=== PATIENT | female | born 2000 | race Two or more races ===

== ENCOUNTER → 2018-01-11 | Outpatient (CLI) | payer OTHER ==
[2018-01-11 16:27] LABS: HCG, SERUM QUANTITATIVE 11 MIU/ML
== END ==
LOC: M LAB 12:28
DX: O20.9 Hemorrhage in early pregnancy, unspecified (principal)
CPT/HCPCS: 84702

== ENCOUNTER 2018-12-21 20:25 | Outpatient (CLI) | payer OTHER ==
[~2018-12-21] VITALS: Ht 172.7 cm; Wt 90.2 kg
[2018-12-21 20:36] VITALS: BP 131/96
[2018-12-21 20:52] VITALS: BP 126/93
--- NOTE | 2018-12-21 21:11 | IPNPDOC ---
Text Note Date of Service The patient was seen on 12/21/18. NOTE 18 yo at 39+6 weeks today presented to L&D with the complaint of contractions that have been worsening throughout the day. She denies any vaginal bleeding or leakage of fluid. However she does have some brown discharge. She endorses excellent movement. She was checked in the office 1 week ago and was 1cm dilated. She denies any headaches, RUQ pain, visual changes, or SOB. Vitals - Diastolic pressure 93, systolic normal. Afebrile, non tachycardic General - AAXO3, sitting up in bed, NAD, pleasant and conversant Abdomen - Gravid uterus, no fundal tenderness Cervix - 1/50/-3, very posterior per RN exam Extremities - No edema FHR tracing - Reactive NST, with moderate variability, +accels, no decels. No ctx on toco. Patient not in active labor. Reassuring status. Note made of mildly elevated diastolic pressure of 93, however she has no headaches, RUQ pain, or visual changes. She has a follow up appointment scheduled for tomorrow at 0845. Return to care sooner for any urgent concerns. All patient questions answered. Edwardo Conde DO VS,Tom, I+O VS, Tom, I+O Vital Signs Date Time Temp Pulse Resp B/P (MAP) Pulse Ox O2 Delivery O2 Flow Rate FiO2 12/21/18 20:52 98.5 64 18 126/93 (104) EDWARDO CONDE DO Dec 21, 2018 21:11
== END 2018-12-21 21:10 | disposition home or self-care (01) ==
LOC: M LDO 20:25
PROVIDERS: ATTEND Obstetrics & Gynecology
DX: O47.1 False labor at or after 37 completed weeks of gestation (principal); O26.893 Other specified pregnancy related conditions, third trimester; R03.0 Elevated blood-pressure reading, without diagnosis of hypertension; Z3A.39 39 weeks gestation of pregnancy
CPT/HCPCS: 59025; G0378; G0463

== ENCOUNTER 2018-12-22 06:11 | Inpatient (IN) | payer OTHER ==
[~2018-12-22] VITALS: Ht 172.7 cm; Wt 89.5 kg
[2018-12-22] VITALS (51 sets, daily range): BP systolic 95–144; BP diastolic 53–94
[2018-12-22] MEDS ORDERED: PENICILLIN G POTASSIUM IV 5 MU in D5W MINI-BAG PLUS 100 ML IV STA ×2 (07:47→08:32)
[2018-12-22] MEDS ORDERED: LACTATED RINGER'S 1000 ML IV STA (07:47)
[2018-12-22] MEDS ORDERED: AMPICILLIN SOD 2 GM in APPROPRIATE DILUENT 20 ML IV STA (08:32)
[2018-12-22 08:35] LABS: HEMATOCRIT 37.9 % (36.0-47.0); HEMOGLOBIN 12.7 g/dl (12.0-15.5); MEAN CORPUSCULAR HEMOGLOBIN 30.4 pg (27.0-33.0); MEAN CORPUSCULAR HGB CONC 33.5 g/dl (32.0-36.5); MEAN CORPUSCULAR VOLUME 90.7 fl (80.0-96.0); PLATELET COUNT, AUTOMATED 273 10^3/uL (150-450); RED BLOOD COUNT 4.18 10^6/uL (4.00-5.40)
--- NOTE | 2018-12-22 08:47 | HPEPDOC ---
Obstetrical History & Physical General Date of Admission Dec 22, 2018 at 07:48 History of Present Illness María is a 18yo with SIUP at 40w0d by lmp c/w early u/s presenting wit h increasingly painful ctx every 1 to 4 minutes. She was here last night and discharged with no e/o labor, returned early this morning stating ctx more painful/regular. No LOF, no vaginal bleeding. Good movement. Chief Complaint: Contractions, term Information Provided By: Patient Care Care: Good Care Dating Final EDC: Dec 22, 2018 Final EDC by: LMP, 1st trimester (US) Antepartum Course Diagnos(e)s PNC complicated by GBS positive, varicella non-immune and excessive weight gain (46lb) Height (inches): 58 Pre- weight (lbs.): 153 Admission Weight (lbs.): 199 Change in Weight (lbs.): 46 Past Medical History Past Obstetrical History : Past Obstetrical History: Primgravida (1 early sab ) [employer] History: Spontaneous , History of STD (chlamydia 2017) Past Medical History Medical History Benign Surgical History: Denies/None Family History Significant Family History: No pertinent family hx Social History Marital Status: Family situation: Spouse/partner home Psychosocial History: No pertinent psych hx * Smoker: non-smoker Alcohol: Denies Drugs: denies Imunizations Tdap status: current Influenza Status: current Allergies Coded Allergies: No Known Allergies (Unverified , 01/08/18) Medications No Active Prescriptions or Reported Meds Physical Examination Physical Examination GENERAL: Alert and oriented times three. ABDOMEN: Gravid and non-tender to touch. FETUS: Is vertex (VTX) by sterile vaginal examination (SVE) EXTREMITIES: No edema Vital Signs/I&O Vital Signs Date Time Temp Pulse Resp B/P (MAP) Pulse Ox O2 Delivery O2 Flow Rate FiO2 12/22/18 06:53 98.8 100 100 99 12/22/18 06:51 130/86 12/22/18 06:47 Room Air Laboratory Data CBC/BMP 26 October H/H 11.9/35.5, plt 279 Urine Culture: No Growth Pertinent Laboratoy Data Blood Type: O+ RBC Antibody Screen: Negative HIV: Negative Hepatitis B: Negative Hepatitis C: Unknown Rapid Plasma Reagin: Nonreactive Rubella: Immune Varicella: Nonreactive Chlamydia/Gonorrhea: Negative Group B Streptococcus: Positive Glucose Tolerance Test: 94 Anatomy Ultrasound Ultrasound Date: September 29, 2018 Placenta Location: Anterior Normal Anatomy: Yes Placenta Previa: No Steroid Therapy Steroid Therapy: No Vaginal Examination Dilation: 6 cm Effacement: 90% Station: -1, 0 Cervical Consistency: Soft Cervical Position: Middle Presentation: Cephalic presentation Assessment Heart Rate (FHR): 140 Variability: Moderate Accelerations: Positive Decelerations: None Tocometer Contractions: Yes Frequency: regular, every 1-5 min. Duration: greater than 60 seconds Strength: palpated as strong Assessment/Plan Assessment María is a 18yo with SIUP at 40w0d by lmp c/w early u/s admitted to L&D for active labor. SCE /-1, ctx q1-4min. Cat I FHRT. Vitals wnl, benign exam. Cephalic by SCE. GBS positive. 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 Diet: clear liquids Group B Streptococcus (GBS) positive: Ampicillin per protocol Labs and intravenous (IV) per unit protocol. Lactated Ringers (LR): Bolus 1000 mL, then at 125 mL/hr. Anticipate normal spontaneous delivery () Candidate for epidural as desired MD Jazzy Younger Katrina D MD Dec 22, 2018 07:54
[2018-12-22] MEDS ORDERED: FENTANYL 2MCG/ML ROPIVACAINE 0.2% IN 0.9% NACL 100ML IVBAG As Ordered ONE (08:57)
[2018-12-22] MEDS: LR 1,000 ML IV SCH ×3 (09:42→16:47)
[2018-12-22] MEDS: ePHEDrine SULFATE 25 MG/5 ML(5MG/ML) SYRINGE IV PRN ×3 (10:13→10:39)
[2018-12-22] MEDS ORDERED: ePHEDrine SULFATE 25 MG/5 ML(5MG/ML) SYRINGE As Ordered ONE (10:16)
[2018-12-22] MEDS ORDERED: ONDANSETRON 4MG/2ML VIAL (J2405) IV PRN (10:30)
[2018-12-22] MEDS ORDERED: EPIDURAL COMMENT XX SCH (10:30)
[2018-12-22] MEDS ORDERED: LACTATED RINGER'S 1000 ML IV PRN (10:30)
[2018-12-22] MEDS ORDERED: EPIDURAL/PCA KEYS XX PRN (10:30)
[2018-12-22] MEDS ORDERED: NALOXONE INJ 0.4 MG/1 ML VIAL (J2310) IV PRN (10:30)
[2018-12-22] MEDS ORDERED: diphenhydrAMINE INJ 50MG/ML VIAL (J1200) IV PRN (10:30)
[2018-12-22] MEDS ORDERED: REFRIGERATOR IV KEYS XX PRN (10:30)
[2018-12-22] MEDS ORDERED: FENTANYL/ROPIVACAINE/NACL BAG 100 ML EPIDURAL SCH (10:30)
[2018-12-22] MEDS ORDERED: PENICILLIN G POTASSIUM IV 2.5 MU in APPROPRIATE DILUENT 1 EA IV SCH ×2 (12:00→13:00)
[2018-12-22] MEDS: AMPICILLIN SOD 1 GM in APPROPRIATE DILUENT 10 ML IV SCH ×2 (13:18→17:10)
[2018-12-22] MEDS ORDERED: OXYTOCIN 30 UNITS IN 0.9% NaCl 500ML IV BAG (J2590) As Ordered ONE (14:32)
--- NOTE | 2018-12-22 16:22 | IPNPDOC ---
Text Note Date of Service The patient was seen on 12/22/18. NOTE Intrapartum Note Pt comfortable with epidural, not yet feeling rectal pressure. Vitals wnl, afebrile SCE: 9/100/-1, forebag ruptured with clear fluid noted Cat I FHRT with mod mark, + accels, no decels Ctx q2-4min Will continue to closely monitor Plan to re-check in 1-2hr or as indicated Safe to proceed Report to Dr. Martin at 1630 Dr. Ese Purcell MD VS,Tom, I+O VS, Tom, I+O Laboratory Tests 12/22/18 08:21 Red Blood Count 4.18, Mean Corpuscular Volume 90.7, Mean Corpuscular Hemoglobin 30.4, Mean Corpuscular Hemoglobin Concent 33.5, Red Cell Distribution Width 14.1 Vital Signs Date Time Temp Pulse Resp B/P (MAP) Pulse Ox O2 Delivery O2 Flow Rate FiO2 12/22/18 13:22 98.1 82 18 109/65 (80) 99 12/22/18 06:47 Room Air Ese Purcell MD Dec 22, 2018 16:22
[2018-12-22] MEDS ORDERED: DIBUCAINE 1% OINTMENT 30GM TOP PRN (18:30)
[2018-12-22] MEDS ORDERED: ANUSOL HC CREAM 30GM TOP PRN (18:30)
[2018-12-22] MEDS ORDERED: MOM 30ML SUSPENSION UDC PO PRN (18:30)
[2018-12-22] MEDS ORDERED: DOCUSATE SODIUM 100 MG CAP PO PRN (18:30)
[2018-12-22] MEDS ORDERED: METHYLERGONOVINE MALEATE 0.2 MG TAB PO PRN (18:30)
[2018-12-22] MEDS ORDERED: ACETAMINOPHEN TAB 650MG DOSE (2X325MG) PO PRN (18:30)
[2018-12-22] MEDS ORDERED: MEASLES,MUMPS,RUBELLA VACCINE INJ (MMR-II) (90707) SC SCH (18:30)
[2018-12-22] MEDS ORDERED: ACETAMINOPHEN 500 MG TAB PO PRN (18:30)
[2018-12-22] MEDS ORDERED: RHOGAM 300 MCG (1500 IU) INJ (J2790) IM SCH (18:30)
[2018-12-22] MEDS ORDERED: IBUPROFEN 600 MG TAB PO PRN (18:30)
[2018-12-22] MEDS ORDERED: OXYTOCIN DRIP 30 UNITS in APPROPRIATE DILUENT 1 EA IV SCH (18:44)
--- NOTE | 2018-12-22 20:52 | DN ---
DATE OF DELIVERY: 12/22/2018 TIME OF : 1732 hours GENDER: Female APGARS: 9 and 9. WEIGHT: 7 pounds 4 ounces or 3300 grams. LACERATIONS: First degree midline laceration. ESTIMATED BLOOD LOSS: 200 mL ANESTHESIA: Epidural. COUNTS: 5 laparotomy sponges accounted for prior and after delivery. 1 sharp removed from the delivery field. DELIVERY NOTE: On the November at 1732 hours Mrs. Ho, a 18-year-old 1, now para 1 had a spontaneous vaginal delivery of a live born female , Apgars 9 and 9, weight was 7 pounds 4 ounces or 3300 grams. Head was delivered occiput anterior (OA) followed by delivery of shoulders and corpus. Infant was handed to mom with a good cry. Cord was clamped times two and was cut by the father of the baby under my direction. Placenta was then drained and delivered grossly intact. A premixed bag of 500 mL of normal saline with 30 units of Pitocin was then bolused along with uterine massage. The uterus was firm. On inspection there is a first-degree midline laceration which was repaired with #3-0 Vicryl Rapide. On reinspection, the cervix, vagina and perineum was grossly intact and hemostatic. Mom and baby recovering in stable condition. The couple has decided to name their daughter Kimberlyn.
[2018-12-23 05:46] VITALS: BP 112/63
[2018-12-23] MEDS: PRENATAL VITAMINS CHEWABLE TABLET PO SCH (08:16)
[2018-12-23] MEDS: IBUPROFEN 800 MG TAB PO PRN (08:16)
--- NOTE | 2018-12-23 12:19 | IPNPDOC ---
Progress Note Date of Service: Dec 23, 2018 Day#: 1 Progress Note SUBJECT: 18yo G2 now P1 s/p uncomplicated at 40+0wks on [id number] at 1732; f emale at 7lbs 4 oz. 1st degree laceration with repair, doing well on PP Day #1. Pt is ambulating, voiding without issue, tolerating regular diet. Pt is well, has received assistance from services. Pt reports lochia is diminishing. kevin a normal period]. Patient is ambulating well. [Reports some cramping with . Denies any pain. Voiding and stooling without difficulty]. OBJECTIVE: VITAL SIGNS: Within normal limits, afebrile. Alert and oriented times three. Abdomen: Fundus firm at U-2. Soft, NTTP. Scant lochia. ASSESSMENT: PP Day #1, normal involution, stable and progressing well. exclusively. PLAN: 1. Complete discharge teaching. 2. Tylenol and Motrin for pain PRN 3. Encourage breast feeding and ambulation. 4. Routine PP Care. 5. Plan for d/c home on PP Day #2 VS, I&O, 24H, Fishbone Vital Signs/I&O Vital Signs Date Time Temp Pulse Resp B/P (MAP) Pulse Ox O2 Delivery O2 Flow Rate FiO2 12/23/18 05:46 98.9 79 18 112/63 (79) 12/22/18 13:22 99 12/22/18 06:47 Room Air I&O- Last 24 Hours up to 6 AM 12/23/18 06:00 Intake Total 3647.7 ml Output Total 2775 ml Balance 872.7 ml VERN KRUEGER CNM Dec 23, 2018 12:19
[2018-12-23 18:07] VITALS: BP 133/88
[2018-12-24 05:49] VITALS: BP 119/83
--- NOTE | 2018-12-24 08:11 | DS.PDOC ---
Discharge Summary General Date of Admission Dec 22, 2018 at 07:48 Date of Discharge December 24, 2018 Discharge Summary HOSPITAL COURSE: Ms. Ho is an 18 yo G2 now P1 who underwent an uncomplicated on 22Dec2018 after being admitted for an IOL for GHTN. Her course has been unremarkable. On her day of discharge she met all appropriate discharge criteria. She was ambulating, voiding, tolerating a regular diet, and had minimal pain and lochia. BPs have been stable and she has had no symptoms of pre eclampsia. DISCHARGE MEDICATIONS: Please see below. ALLERGIES: Please see below. PHYSICAL EXAMINATION ON DISCHARGE: VITAL SIGNS: Please see below. GENERAL: AAOX3, laying in bed, NAD ABDOMINAL EXAMINATION: Fundus firm at U-2. No fundal tenderness EXTREMITIES: No edema PSYCHIATRIC EXAMINATION: Affect appropriate LABORATORY DATA: Please see below. ACTIVITY: Pelvic rest for 6 weeks DIET: Regular DISCHARGE PLAN: Discharge to home or to boarder status DISPOSITION: Discharge to home or to boarder status on 24Dec2018. DISCHARGE INSTRUCTIONS: 1. Pelvic rest for 6 weeks ITEMS TO FOLLOWUP ON ON OUTPATIENT: 1. appointment in 6 weeks. 2. Walk into OB clinic for a BP check next week DISCHARGE CONDITION: Stable. TIME SPENT ON DISCHARGE: Greater than 20 minutes. Edwardo Conde DO Vital Signs/I&Os Vital Signs Date Time Temp Pulse Resp B/P (MAP) Pulse Ox O2 Delivery O2 Flow Rate FiO2 12/24/18 05:49 97.9 78 17 119/83 (95) 97 12/22/18 06:47 Room Air Discharge Medications No Active Prescriptions or Reported Meds Allergies Coded Allergies: No Known Allergies (Unverified , 12/22/18) EDWARDO CONDE DO Dec 24, 2018 08:11
[2018-12-24] MEDS: PRENATAL VITAMINS CHEWABLE TABLET PO SCH (08:17)
[2018-12-24] MEDS: IBUPROFEN 800 MG TAB PO PRN (08:18)
[2018-12-24] MEDS ORDERED: IBUP80TA PO (08:19)
[2018-12-24] MEDS ORDERED: DIBU10OI TOP (08:19)
[2018-12-24] MEDS ORDERED: ACET1TAB55 PO (08:19)
== END 2018-12-24 13:25 | disposition home or self-care (01) | DRG 807 ==
LOC: M LDO 06:11 → M LDI 07:48 → M OBS 20:26
PROVIDERS: ADMIT Obstetrics & Gynecology; ATTEND Obstetrics & Gynecology
PROC: 10E0XZZ Delivery of Products of Conception, External Approach (ICD-10-PCS; principal; 2018-12-22)
PROC: 0HQ9XZZ Repair Perineum Skin, External Approach (ICD-10-PCS; 2018-12-22)
DX: O48.0 Post-term pregnancy (principal); Z37.0 Single live birth; Z3A.40 40 weeks gestation of pregnancy; O99.820 Streptococcus B carrier state complicating pregnancy; O26.00 Excessive weight gain in pregnancy, unspecified trimester; O70.0 First degree perineal laceration during delivery